=== PATIENT | female | born 1980 | race Hispanic/Latino ===

== ENCOUNTER 2021-10-08 14:22 | Emergency (ER) | payer OTHER, SELFPAY ==
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
[2021-10-08 14:29] VITALS: BP 146/86; PULSE 103; RESP 14; TEMP 36.4; O2SAT 100
--- NOTE | 2021-10-08 14:39 | ECG_ITS ---
Measurements Intervals [place] Rate: 96 P: 29 NV: 144 QRS: 113 QRSD: 82 T: 28 QT: 306 QTc: 388 Interpretive Statements SINUS RHYTHM Electronically Signed On 10-09-2021 8:43:25 CDT by Gerhard Augustin M.D.
[2021-10-08 14:58] LABS: Basophils Percent Auto 0.5 % (0.2-1.2); Eosinophils Absolute Auto 0.1 K/mm3 (0-0.3); Eosinophils Percent Auto 1.5 % (0-4.4); Hemoglobin 13.8 g/dL (12.0-15.0); Immature Granulocyte Absolute 0.03 K/mm3 (0.00-0.031); Immature Granulocyte Percent A 0.4 % (0-0.5); Lymphocytes Absolute Auto 2.57 K/mm3 (0.9-3.2); Lymphocytes Percent Auto 34.6 % (18.3-44.2); Mean Corpuscular HGB Conc 34.5 g/dl (32-36); Mean Corpuscular Hemoglobin 28.8 pg (26-34); Mean Corpuscular Volume 83.5 fl (80-100); Mean Platelet Volume 10.2 fl (7.4-10.4); Monocytes Absolute Auto 0.4 K/mm3 (0.1-0.6); Monocytes Percent Auto 5.8 % (2.6-8.5); Neutrophils Absolute Auto 4.2 K/mm3 (1.3-6.7); Neutrophils Percent Auto 57.2 % (45.5-73.1); Platelet Count Result 313 k/mm3 (150-375); Red Blood Count 4.79 M/mm3 (4.2-5.4); Red Cell Distribution Width 12.6 % (11.5-14.5); White Blood Count 7.4 K/mm3 (4.5-10.0)
[2021-10-08 15:13] LABS: Prothrombin Time 12.3 Seconds (11.1-14.7)
[2021-10-08 15:14] LABS: Partial Thromboplastin Time 21.9 SECONDS (22.3-36.8)
[2021-10-08 15:17] LABS: Alanine Aminotransferase 21 U/L (4-35); Albumin Level 4.3 g/dL (3.5-5.1); Alkaline Phosphatase 163 U/L (38-126); Anion Gap 13 mmol/L (8-16); Aspartate Amino Transferase 25 U/L (14-36); Bilirubin,Total 1.4 mg/dL (0.2-1.3); Blood Urea Nitrogen 11 mg/dL (7-17); Carbon Dioxide 19 mmol/L (22-30); Chloride 104 mmol/L (98-107); Estimated Glomerular Filt Rate > 60; Glucose 424 mg/dL (65-110); Lipase 179 U/L (23-300); Potassium 3.5 mmol/L (3.4-5.0); Sodium 136 mmol/L (137-145)
[2021-10-08 15:28] LABS: Troponin I < 0.012 ng/mL (0.000-0.034)
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
[2021-10-08 21:43] VITALS: BP 120/71; PULSE 81; RESP 18; O2SAT 100
[2021-10-08] MEDS: NAPROXEN 500 MG TABLET PO (23:06)
[2021-10-08] MEDS: methocarbamoL 500 MG TABLET PO (23:07)
[2021-10-08 23:17] VITALS: BP 117/79; PULSE 81; RESP 14; O2SAT 100
== END 2021-10-08 23:18 | disposition home or self-care (01) ==
PROVIDERS: Emergency Medicine; Emergency Provider Nurse Practitioner Family
DX: R07.81 Pleurodynia (principal); S60.212A Contusion of left wrist, initial encounter; S60.011A Contusion of right thumb without damage to nail, initial encounter; S16.1XXA Strain of muscle, fascia and tendon at neck level, initial encounter; S39.012A Strain of muscle, fascia and tendon of lower back, initial encounter; V49.9XXA Car occupant (driver) (passenger) injured in unspecified traffic accident, initial encounter; Y92.410 Unspecified street and highway as the place of occurrence of the external cause
CPT/HCPCS: 36415; 71046; 71260; 72125; 72129; 72132; 73090; 73130; 74177; 80053; 83690; 84484; 85025; 85610; 85730; 93005; 99284; A9270; Q9967